=== PATIENT | female | born 1995 | race Hispanic/Latino ===

== ENCOUNTER 2019-06-25 00:10 | Inpatient (IN) | payer OTHER ==
[~2019-06-25] VITALS: Ht 157.5 cm; Wt 102.0 kg
--- NOTE | 2019-06-25 11:09 | PR ---
[facility] [address] [facility] [place], [place] [address] Signed Progress Notes IP Datetime Report Generated by CPN: 06/25/2019 11:09 PROGRESS NOTES: [id number] Impression: Normal progression of labor; Reassuring heart rate Plan: Continue present management VITAL SIGNS: [id number] Vital Signs: Reviewed; Within Normal Limits EXAM: [id number] Dilatation: 6.0 Effacement: 90 Station: -1 Uterine Contractions: q2-3 minutes MEMBRANES: [id number] Membrane Status: Intact Comments: Pt seen and evaluated. Doing well. Comfortable w/ contractions. Progressing well w/ reassuring FHT. Continue expectant management. Fetus A: [id number] FHR Baseline: 130 Variability: Moderate 6-25bpm Accelerations: 15X15 Decelerations: None FHR Category: Category I Presentation: Vertex Comments on Fetus A: No evidence of metabolic acidosis Fetus B: [id number] Signing Physician: Jaci Driscoll DO Copies: ~ *Electronically Signed* 06/25/19 1109 JACI DRISCOLL DO PATIENT NAME: RAMA,KENNETHJAGDEEP HERRREA PROGRESS NOTE DATE OF : 95 PHYSICIAN: JACI DRISCOLL DO RPT #: [id number] REPORT IS CONFIDENTIAL AND NOT TO BE RELEASED WITHOUT AUTHORIZATION
== END 2019-06-26 16:50 | disposition home or self-care (01) | DRG 806 ==
LOC: FBC 00:10
PROVIDERS: ADMIT Obstetrics & Gynecology
PROC: 10E0XZZ Delivery of Products of Conception, External Approach (ICD-10-PCS; principal; 2019-06-25)
PROC: 0KQM0ZZ Repair Perineum Muscle, Open Approach (ICD-10-PCS; 2019-06-25)
PROC: 3E0P7VZ Introduction of Hormone into Female Reproductive, Via Natural or Artificial Opening (ICD-10-PCS; 2019-06-25)
PROC: 00HU33Z Insertion of Infusion Device into Spinal Canal, Percutaneous Approach (ICD-10-PCS; 2019-06-25)
PROC: 3E0R3BZ Introduction of Anesthetic Agent into Spinal Canal, Percutaneous Approach (ICD-10-PCS; 2019-06-25)
DX: O48.0 Post-term pregnancy (principal); O99.324 Drug use complicating childbirth; Z37.0 Single live birth; Z3A.40 40 weeks gestation of pregnancy; O43.113 Circumvallate placenta, third trimester; O70.1 Second degree perineal laceration during delivery; F12.90 Cannabis use, unspecified, uncomplicated
CPT/HCPCS: 01960; 36415; 85027; A9270; J2405; J2590; J2795; J3010